=== PATIENT | female | born 2000 | race Caucasian/White ===

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

== ENCOUNTER → 2022-01-09 14:16 | Outpatient (CLI) | payer BC, SELFPAY ==
--- NOTE | 2022-01-09 | DI.RAD.S_ITS ---
PROCEDURE: XR ANKLE RT MIN 3V INDICATIONS: Pain in right ankle and joints of right foot TECHNIQUE: Three views of the ankle were acquired. COMPARISON: [facility], CR, XR ANKLE RT MIN 3V, 12/09/2021, 17:56. FINDINGS: Bones: There is a cortical irregularity involving the anterior aspect of the tibial epiphysis. A fracture fragment is not identified. No other fractures are seen. Ankle mortise remains intact. Soft tissues: No tibiotalar joint effusion. Achilles tendon appears normal. No intra-articular foreign bodies or radiodensities. IMPRESSION: 1. Questionable cortical irregularity along the anterior distal tibial epiphysis. Consider MRI for further delineation of osseous an overlying cortical structures. 2. No loose bodies are seen in the joint space. Dictated by: Kathleen Enrique M.D. on 01/09/2022 at 18:58 Approved by: Kathleen Enrique M.D. on 01/09/2022 at 19:00
== END ==
PROVIDERS: PCP Student in an Organized Health Care Education/Training Program; Referring Provider Student in an Organized Health Care Education/Training Program; Visit Provider Student in an Organized Health Care Education/Training Program
DX: M25.571 Pain in right ankle and joints of right foot (principal)
CPT/HCPCS: 73610

== ENCOUNTER → 2022-05-02 16:47 | Outpatient (CLI) | payer BC, SELFPAY ==
--- NOTE | 2022-05-02 16:48 | DI.MRI.S_ITS ---
PROCEDURE: MR ANKLE RT WO CON INDICATIONS: Pain in right ankle and joints of right foot TECHNIQUE: Noncontrast sagittal T1 spin echo and T2 fast spin echo with fat saturation, axial proton density fast spin echo and T2 fast spin echo with fat saturation, coronal T1 spin echo and T2 fast spin echo with fat saturation through the ankle/hindfoot. COMPARISON: None. FINDINGS: Image quality: Excellent. Bones and joints: There is marrow edema involving posterior and lateral aspect of distal tibia extending to posterior lateral distal tibial plafond with subcortical cystic area suggestive of osteochondral injury in this area measures up to 3 mm in size. No osteochondral injuries of talar dome is seen. No other area of abnormal marrow signal. No significant joint effusion. Medial structures: The posterior tibialis, flexor digitorum longus, and flexor hallucis longus tendons are intact. Small amount of fluid distending flexor tendon sheath at the level of distal talus and talonavicular joint is seen. The posterior tibial neurovascular bundle appears normal within the tarsal tunnel, without extrinsic mass effect. The deltoid ligament and spring ligament complex are thickened with intrasubstance T2 hyperintense signal. Lateral structures: The anterior talofibular, calcaneofibular, and posterior talofibular ligaments appear thickened with intrasubstance T2 hyperintense signal. More superiorly, the anterior and posterior tibiofibular ligaments appear intact, as is the intermalleolar ligament. The tibiofibular syndesmosis is normal in width at 2 mm or less. The peroneus longus and brevis tendons demonstrate normal location and morphology. Adjacent bony peroneal tubercle and retrotrochlear prominence are normal in size. The sinus tarsi demonstrates normal fatty signal, without edema, fibrosis, or cyst formation. Visualized sinus tarsi components (cervical ligament, interosseous talocalcaneal ligament, roots of the inferior extensor retinaculum) appear normal. The calcaneonavicular and calcaneocuboid components of the bifurcate ligament appear intact. The dorsal calcaneocuboid ligament appears intact. Anterior structures: The tibialis anterior, extensor hallucis longus, and extensor digitorum longus tendons appear intact. The dorsal talonavicular ligament appears intact. Posterior and plantar structures: Achilles tendon is intact. Medial and lateral bands of the plantar fascia are of normal thickness. No abductor digiti quinti muscle atrophy to suggest Duran neuropathy. IMPRESSION: 1. 3 mm osteochondral injury involving posterior and lateral aspect of distal tibial plafond with surrounding marrow edema. No osteochondral injuries of talar dome is seen. No fracture or dislocation. 2. Low-grade sprain/intrasubstance partial-thickness tear involving deltoid ligament and spring ligament complex. Moderate grade sprain/partial-thickness tear involving anterior and posterior talofibular ligaments and calcaneofibular ligament. 3. Suggestion of low-grade tenosynovitis involving flexor tendons at the level of distal talus/talonavicular joint. Dictated by: Jayant Tripathi M.D. on 05/05/2022 at 8:10 Approved by: Jayant Tripathi M.D. on 05/05/2022 at 8:13
== END ==
PROVIDERS: PCP Student in an Organized Health Care Education/Training Program; Referring Provider Family Medicine; Visit Provider Family Medicine
DX: S93.491A Sprain of other ligament of right ankle, initial encounter (principal); S93.411A Sprain of calcaneofibular ligament of right ankle, initial encounter; S93.421A Sprain of deltoid ligament of right ankle, initial encounter; M25.571 Pain in right ankle and joints of right foot
CPT/HCPCS: 73721

== ENCOUNTER → 2022-08-21 17:55 | Outpatient (CLI) | payer BC, SELFPAY | PROVIDERS: PCP Student in an Organized Health Care Education/Training Program; Visit Provider Nurse Practitioner Family | DX: J02.9 Acute pharyngitis, unspecified (principal) | CPT/HCPCS: 87070 ==

== ENCOUNTER → 2023-07-14 07:47 | Outpatient (CLI) | payer BC, SELFPAY ==
--- NOTE | 2023-07-14 07:49 | DI.US.S_ITS ---
PROCEDURE: US PELVIC COMPLETE INDICATIONS: ADNEXAL PAIN TECHNIQUE: Real-time scanning was performed of the pelvic organs, with image documentation. Additional endovaginal scanning was necessary due to incomplete visualization of the adnexal and endometrial structures by transabdominal scanning. COMPARISON: None. FINDINGS: Uterus: Uterus is anteverted and normal in size at 6.7 x 4.1 x 3.0 cm. The myometrium is homogeneous. The endometrium measures 1.4 mm combined thickness. Trace fluid with cervical canal. Ovaries: The right ovary measures 2.7 x 1.6 x 1.8 cm, with a calculated ovarian volume of 4 cc. The left ovary measures 2.5 x 2.9 x 1.6 cm, with a calculated ovarian volume of 6 cc. The ovaries have a normal sonographic appearance. Less than 12 follicles can be seen in each ovary. No adnexal masses are seen. Other: No pathologic free abdominal or pelvic fluid. IMPRESSION: Unremarkable pelvic ultrasound. We strive to produce accurate, complete, and clear reports of imaging services. To assist us in improving patient care, this report was composed using standard report templates and voice recognition software. Therefore, it may contain abnormal punctuation, insertions and/or omissions. Occasional wrong-word or sound-alike substitutions may occur. Though we review the report and make efforts to correct it, we do recommend that the report be read carefully in proper context to recognize any text inaccuracies. Dictated by: Deven Harris M.D. on 07/14/2023 at 10:07 Approved by: Deven Harris M.D. on 07/14/2023 at 10:09
== END ==
PROVIDERS: PCP Family Medicine; Referring Provider Family Medicine; Visit Provider Family Medicine
DX: R10.2 Pelvic and perineal pain (principal)
CPT/HCPCS: 76830; 76856